=== PATIENT | female | born 1945 | race Caucasian/White ===

== ENCOUNTER → 2019-05-19 09:49 | Outpatient (BNVA) | payer BC, SELFPAY | PROVIDERS: Family Provider Family Medicine; PCP Family Medicine; Visit Provider Orthopaedic Surgery | DX: Z96.653 Presence of artificial knee joint, bilateral (principal) | CPT/HCPCS: 73560; 73565 ==

== ENCOUNTER → 2019-06-06 08:05 | Outpatient (BNVA) | payer BC, SELFPAY | PROVIDERS: Family Provider Family Medicine; PCP Family Medicine; Visit Provider Orthopaedic Surgery | DX: Z96.651 Presence of right artificial knee joint (principal) | CPT/HCPCS: 73560; 73565 ==

== ENCOUNTER 2019-11-17 23:12 | Emergency (ER) | payer BC, SELFPAY ==
--- NOTE | 2019-11-17 23:22 | XR_ITS ---
WS: [id number] PORTABLE CHEST HISTORY: fever COMPARISON: 05/09/2019 There is a small amount of free air beneath the RIGHT diaphragm. Mildly hyperinflated lungs. No pneumonia. No pleural effusion or pneumothorax. Cardiac size: Normal. Mediastinum/Aorta: Dilated ectatic thoracic aorta with partial calcification. Degenerative changes at the AC joints. Notified Dr. Cantor at 11/18/2019 8:[address] Cantor was notified about the small amount of free air. Free air is present but not described o n the CT performed on the same day. XR/XR chest 1V portable [id number] IMPRESSION: 1. Small amount of intraperitoneal free air adjacent to the RIGHT diaphragm. 2. Chronic emphysema with no pneumonia. 3. Atherosclerosis aorta.
--- NOTE | 2019-11-17 23:22 | CTR_ITS ---
PROCEDURE INFORMATION: Exam: CT Abdomen And Pelvis With Contrast Exam date and time: 11/17/2019 12:30 AM Age: 74 years old Clinical indication: Abdominal pain; Generalized; Prior surgery; Surgery type: Appendectomy, hernia repair; Additional info: Abd pain TECHNIQUE: Imaging protocol: Computed tomography of the abdomen and pelvis with intravenous contrast. Radiation optimization: All CT scans at this facility use at least one of these dose optimization techniques: automated exposure control; mA and/or kV adjustment per patient size (includes targeted exams where dose is matched to clinical indication); or iterative reconstruction. Contrast material: OMNI 300; Contrast volume: 95 ml; Contrast route: INTRAVENOUS (IV); COMPARISON: No relevant prior studies available. RADIATION DOSE METRICS: Total DLP (mGy-cm): 1718.55 FINDINGS: Lungs: Mild atelectasis at bilateral lung bases. Liver: Unremarkable. Gallbladder and bile ducts: Unremarkable. Pancreas: Unremarkable. Spleen: Unremarkable. Adrenals: Unremarkable. Kidneys and ureters: There are a few tiny (subcentimeter) hypodensities in each kidney, too small for definitive characterization. Stomach and bowel: No bowel obstruction identified. No diverticulitis identified. Appendix: The appendix is not identified, consistent with appendectomy. Intraperitoneal space: No free intraperitoneal air identified. No free intraperitoneal fluid identified. Vasculature: Extensive atherosclerotic aortoiliac calcification. No abdominal aortic aneurysm. Lymph nodes: Unremarkable. Bladder: Unremarkable as visualized. Reproductive: Unremarkable as visualized. Bones/joints: Moderate degenerative changes of the lower thoracic spine. Severe degenerative changes of the lumbar spine. Soft tissues: Unremarkable. CT/CT abdomen pelvis w con* [id number] IMPRESSION: 1. No acute intra-abdominal/intrapelvic process identified. Radiation Dose CTDIVOL = (mGy): DLP = 1718.55 (mGy-cm)
[2019-11-17 23:28] VITALS: BP 145/75; RESP 20; TEMP 37.8; O2SAT 95; BMI 34.4
--- NOTE | 2019-11-17 23:45 | W.ED.FEMALGU ---
HPI - Female Genitourinary General: Chief complaint: Urogenital-Female Stated complaint: POSSIBLE UTI Time Seen by Provider: 11/17/19 23:18 Source: patient and EMS Mode of arrival: EMS Limitations: no limitations History of Present Illness: HPI Narrative: 74-year-old female presents with fever along with diffuse abdominal pain and dysuria. Patient has a temperature of 102 at home and 100 here. She states she has had UTIs in the past and this feels similar. She has had a mild cough as well denies any shortness of breath. She denies any known contacts of COVID. Denies any worsening or improving factors. Associated symptoms: Reports abdominal pain; Deny headache(s) Review of Systems Const: Reports: fever(s) Eyes: Denies: blurry vision or eye discomfort ENMT: Denies: throat pain or dental pain Card: Denies: chest pain Resp: Denies: dyspnea GI: Reports: abdominal pain : Denies: dysuria Musc: Denies: neck pain or back pain Skin/Breast: Denies: rash Neuro: Denies: headache(s) Psych: Denies: depression Joe/Lymph: Denies: easy bruising All/Imm: Denies: urticaria PFSH ED PFSH: Medical History Heart disease Hypertension Pulmonary embolism Surgical History S/P total knee replacement Right total knee arthroplasty, DOS: 05-04-[address] Olmedo. Social History Smoking and tobacco status: former smoker Alcohol intake: never Physical Exam Const: COMMON NORMALS: no acute distress, patient oriented x3 and healthy appearing HENMT: COMMON NORMALS: normocephalic and atraumatic HEAD & SCALP: normocephalic and atraumatic Eye: COMMON NORMALS: Equal, round and reactive pupils present and EOMs intact bilaterally PUPIL: Yes Equal, round and reactive pupils present Neck/C-Spine: COMMON NORMALS: full ROM and supple Chest: COMMONS NORMALS: normal inspection of the chest and normal palpation of entire chest wall Resp: COMMON NORMALS: normal respiratory effort, No retractions, No use of accessory muscles and clear to auscultation bilaterally AUSCULTATION: clear to auscultation bilaterally Cardio: COMMON NORMALS: regular rate, regular rhythm and No murmurs present (Cardio) RATE: regular rate RHYTHM: regular rhythm GI: COMMON NORMALS: Normal to inspection, nondistended, normoactive bowel sounds present, Soft to palpation and no masses PALPATION: Yes Soft to palpation OTHER: mild diffuse tenderness Extremity: COMMON NORMALS: normal to inspection and full ROM Neuro: COMMON NORMALS: patient oriented x3, moves all extremities and no focal motor deficits Psych: COMMON NORMALS: mental status grossly normal, Normal thought process present and cooperative THOUGHT PROCESS: Normal thought process present Skin: COMMON NORMALS: no rashes or lesions noted and no wounds GENERAL SKIN EXAM: no rashes or lesions noted Course Vital Signs: Vital signs: Vital Signs Temperature 100.0 F H 11/17/19 23:28 Pulse Rate 85 11/18/19 03:32 Respiratory Rate 19 H 11/18/19 03:32 Blood Pressure 133/97 11/18/19 03:32 Pulse Oximetry 91 11/18/19 03:32 MDM - Female MDM Narrative: Medical decision making narrative: Patient presents here with a fever along with dysuria. Patient's urine here is negative but will start on Keflex. Patient had urine culture and blood cultures drawn. Patient's had a very mild cough CT abdomen and x-ray are normal. Will test for coronavirus. I did offer patient admission but she states she feels improved. Will discharge her but informed her if she feels worse she is to return immediately. Patient is to self quarantine. Patient understands and agrees to plan. Lab Data: Labs: Lab Results 11/17/19 11/17/19 11/17/19 Range/Units 23:34 23:34 23:34 WBC 3.4 L (4.0-10.0) 10^3/ uL RBC 4.76 (4.1-5.3) 10^6/u L Hgb 14.2 (11.5-15.3) g/dL Hct 45.2 (37.0-47.0) % MCV 95.0 (81-99) fL MCH 29.8 (28.0-34.0) pg MCHC 31.4 (30.0-36.0) g/dL RDW 15.6 H (12.1-15.1) % Plt Count 200 (130-400) 10^3/c mm MPV 9.9 (7.4-10.4) fL Neut % (Auto) 67.7 % Lymph % (Auto) 21.6 % [place] % (Auto) 10.4 % Eos % (Auto) 0.0 % Baso % (Auto) 0.0 % Neut # (Auto) 2.3 (1.8-7.7) 10^3/u L Lymph # (Auto) 0.7 L (0.8-4.8) 10^3/u L [place] # (Auto) 0.4 (0.2-0.9) 10^3/u L Eos # (Auto) 0.0 (0.0-0.8) 10^3/u L Baso # (Auto) 0.0 (0.0-0.1) 10^3/u L Nucleated RBC % (a uto) 0 % Nucleated RBCs # 0.0 /100WBC Sodium 137 (136-145) mmol/L Potassium 4.0 (3.5-5.1) mmol/L Chloride 100 (98-107) mmol/L Carbon Dioxide 24 (22-29) mmol/L Anion Gap 17.0 (5-19) BUN 10 (8-23) mg/dL Creatinine 0.8 (0.5-0.9) mg/dL GFR Calculation Not Reportable Glucose 126 H (65-115) mg/dL Calculated Osmolal ity 282 L (285-295) mOsm/k g Lactate 0.8 (0.5-2.2) mmol/L Calcium 9.3 (8.5-10.5) mg/dL Total Bilirubin 0.3 (0.15-1.2) mg/dL AST 35 H (0-32) U/L ALT 34 H (0-33) U/L Alkaline Phosphata se 70 (35-105) IU/L Total Protein 7.6 (6.6-8.7) g/dL Albumin 4.5 (3.5-5.2) g/dL Globulin 3.1 (1.3-4.6) g/dL Lipase 28 (13-60) U/L Urine Color (Yellow) Urine Appearance (CLEAR) Urine pH (5-7) Ur Specific Gravit y (1.005-1.030) Urine Protein (Negative) Urine Glucose (UA) (Normal) Urine Ketones (Negative) Urine Blood (Negative) Urine Nitrate (Negative) Urine Bilirubin (NEGATIVE) Urine Urobilinogen (Negative) mg/dL Ur Leukocyte Adeline ase (Negative) Urine RBC (0-2) /hpf Urine WBC (0-5) /hpf Ur Squamous Epith Cells (0-5) Amorphous Sediment Urine Bacteria (NONE) 11/18/19 Range/Units 00:03 WBC (4.0-10.0) 10^3/ uL RBC (4.1-5.3) 10^6/u L Hgb (11.5-15.3) g/dL Hct (37.0-47.0) % MCV (81-99) fL MCH (28.0-34.0) pg MCHC (30.0-36.0) g/dL RDW (12.1-15.1) % Plt Count (130-400) 10^3/c mm MPV (7.4-10.4) fL Neut % (Auto) % Lymph % (Auto) % [place] % (Auto) % Eos % (Auto) % Baso % (Auto) % Neut # (Auto) (1.8-7.7) 10^3/u L Lymph # (Auto) (0.8-4.8) 10^3/u L [place] # (Auto) (0.2-0.9) 10^3/u L Eos # (Auto) (0.0-0.8) 10^3/u L Baso # (Auto) (0.0-0.1) 10^3/u L Nucleated RBC % (a uto) % Nucleated RBCs # /100WBC Sodium (136-145) mmol/L Potassium (3.5-5.1) mmol/L Chloride (98-107) mmol/L Carbon Dioxide (22-29) mmol/L Anion Gap (5-19) BUN (8-23) mg/dL Creatinine (0.5-0.9) mg/dL GFR Calculation Glucose (65-115) mg/dL Calculated Osmolal ity (285-295) mOsm/k g Lactate (0.5-2.2) mmol/L Calcium (8.5-10.5) mg/dL Total Bilirubin (0.15-1.2) mg/dL AST (0-32) U/L ALT (0-33) U/L Alkaline Phosphata se (35-105) IU/L Total Protein (6.6-8.7) g/dL Albumin (3.5-5.2) g/dL Globulin (1.3-4.6) g/dL Lipase (13-60) U/L Urine Color Dark yellow (Yellow) Urine Appearance Hazy A (CLEAR) Urine pH 6.5 (5-7) Ur Specific Gravit y 1.015 (1.005-1.030) Urine Protein Neg (Negative) Urine Glucose (UA) Norm (Normal) Urine Ketones 2+ H (Negative) Urine Blood Neg (Negative) Urine Nitrate Negative (Negative) Urine Bilirubin 1+ H (NEGATIVE) Urine Urobilinogen 1 H (Negative) mg/dL Ur Leukocyte Adeline ase Negative (Negative) Urine RBC 0-4 H (0-2) /hpf Urine WBC None (0-5) /hpf Ur Squamous Epith Cells 25-40 H (0-5) Amorphous Sediment Not Reportable Urine Bacteria Trace (NONE) Imaging Data: CXR: Attestation: I personally reviewed and interpreted this imaging study as follows: My impression: no acute abnormality Discharge Plan Discharge Patient Disposition: Home, Self-Care Clinical Impression: Fever Qualifiers: Fever type: unspecified Qualified Code(s): R50.9 - Fever, unspecified Condition: Stable Prescriptions: New Keflex 500 mg capsule 500 mg PO Q6H 7 Days Qty: 28 RF: 0 No Action escitalopram oxalate 20 mg tablet 10 mg PO QDAY RF: 0 lovastatin 10 mg tablet 10 mg PO QDAY RF: 0 amlodipine 5 mg tablet 5 mg PO QDAY RF: 0 bupropion HCl 150 mg tablet extended release 24 hr 150 mg PO QAM RF: 0 losartan 50 mg tablet 50 mg PO QDAY RF: 0 aspirin 81 mg tablet,delayed release (DR/EC) 81 mg PO QDAY RF: 0 Complete Multivitamin Tablet 1 tab PO QDAY RF: 0 ibuprofen 800 mg tablet 800 mg PO Q8H RF: 0 Xarelto 20 mg tablet 20 mg PO QDAY RF: 0 amoxicillin 500 mg capsule 500 mg PO .COMPLEX Qty: 24 RF: 0 tramadol 50 mg tablet 50 mg PO BID PRNRF: 0 Discharge Orders: Discharge Order (Routine); Ordered 11/18/19 Ordered By: Max Mahan Referrals: Joe Witt MD [Primary Care Provider] - 1-3 days Discharge Diet: Advance as tolerated Discharge Activity: Resume usual activity Patient Instructions: Fever in Adults (ED) Coding Level of Care Code 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
[2019-11-18 00:14] LABS: Chloride 100 mmol/L (98-107); Sodium 137 mmol/L (136-145); Total Bilirubin 0.3 mg/dL (0.15-1.2); Total Protein 7.6 g/dL (6.6-8.7)
[2019-11-18 00:20] LABS: Hematocrit 45.2 % (37.0-47.0); Hemoglobin 14.2 g/dL (11.5-15.3); Lymphocytes # 0.7 10^3/uL (0.8-4.8); Lymphocytes % 21.6 %; Mean Corpuscular HGB Conc 31.4 g/dL (30.0-36.0); Mean Corpuscular Hemoglobin 29.8 pg (28.0-34.0); Mean Platelet Volume 9.9 fL (7.4-10.4); Monocytes # 0.4 10^3/uL (0.2-0.9); Monocytes % 10.4 %; Neutrophils # 2.3 10^3/uL (1.8-7.7); Neutrophils % 67.7 %; Nucleated Red Blood Cells % 0 %; Platelet Count 200 10^3/cmm (130-400); Red Blood Count 4.76 10^6/uL (4.1-5.3); Red Cell Distribution Width 15.6 % (12.1-15.1); White Blood Count 3.4 10^3/uL (4.0-10.0)
[2019-11-18] MEDS: ondansetron 2 mg/ML SDV 2 mL 4 MG IVP (00:33)
[2019-11-18] MEDS: sodium chloride 0.9% 1,000 ML 999 ML IV (00:33)
[2019-11-18 00:35] VITALS: BP 129/71; PULSE 87; RESP 18; O2SAT 94
[2019-11-18 01:25] LABS: Alanine Aminotransferase 34 U/L (0-33); Albumin Level 4.5 g/dL (3.5-5.2); Alkaline Phosphatase 70 IU/L (35-105); Aspartate Amino Transferase 35 U/L (0-32); Blood Urea Nitrogen 10 mg/dL (8-23); Calcium 9.3 mg/dL (8.5-10.5); Carbon Dioxide 24 mmol/L (22-29); Globulin 3.1 g/dL (1.3-4.6); Glucose 126 mg/dL (65-115); Lipase 28 U/L (13-60); Osmolality Calculated 282 mOsm/kg (285-295)
[2019-11-18 01:30] LABS: Add Urine Microscopic? YES; Bilirubin Urine 1+ (NEGATIVE); Blood Urine Neg (Negative); Glucose Urine UA Norm (Normal); Ketones Urine 2+ (Negative); Leukocyte Esterase Urine Negative (Negative); Nitrate Urine Negative (Negative); Protein Urine Neg (Negative); Specific Gravity, Urine 1.015 (1.005-1.030); Urine Appearance Hazy (CLEAR); Urine Color Dark Yellow (Yellow); Urobilinogen Urine 1 mg/dL (Negative); pH Urine 6.5 (5-7)
[2019-11-18 01:32] LABS: Add Urine Culture? No; Bacteria Urine TRACE; RBC Urine 0-4 /hpf (0-2); Squamous Epithelial Cell Urine 25-40 (0-5)
[2019-11-18] MEDS: iohexol 300 mg/mL 100 mL Btl IV (01:38)
[2019-11-18] MEDS: TRAMadol 50 mg Tablet PO (01:38)
[2019-11-18 01:44] LABS: Lactate (Lactic Acid level) 0.8 mmol/L (0.5-2.2)
[2019-11-18 03:32] VITALS: BP 133/97; PULSE 85; RESP 19; O2SAT 91
[2019-11-18] MEDS: cefTRIAXone 1,000 MG in sodium chloride 0.9% (plus) 50 ML 100 MG IV (03:32)
[2019-11-18 05:08] VITALS: BP 117/75; PULSE 93; RESP 16; O2SAT 96
[2019-11-18 05:51] LABS: Influenza A by IFA Negative (Negative); Influenza B by IFA Negative (Negative)
--- NOTE | 2019-11-18 08:49 | PC.NURSE ---
Pt called and notified of Dr Cantor request for pt to return to ED for further evaluation after radiology results. Pt states she will come in.
[2019-11-19 09:28] LABS: Coronavirus Lab Test PTC SEE REPORT
== END 2019-11-18 05:12 | disposition home or self-care (01) ==
PROVIDERS: Emergency Provider Emergency Medicine; PCP Family Medicine
DX: R50.9 Fever, unspecified (principal); Z79.82 Long term (current) use of aspirin; I10 Essential (primary) hypertension; Z87.891 Personal history of nicotine dependence
CPT/HCPCS: 12345; 71045; 74177; 80053; 81001; 81003; 83605; 83690; 85025; 87040; 87086; 87635; 87804; 96365; 96375; 99284; J0696; J2405; J7030; Q9967

== ENCOUNTER 2019-11-18 09:11 | Inpatient (IN) | payer MEDICARE, BC, SELFPAY ==
[2019-11-18] VITALS (12 sets, daily range): BP systolic 118–145; BP diastolic 69–80; PULSE 75–94; RESP 16–20; TEMP 37.4–37.6; O2SAT 93–97; BMI 34.4
--- NOTE | 2019-11-18 09:21 | CT_ITS ---
WS: [id number] CT ABDOMEN AND PELVIS WITH CONTRAST HISTORY: abd pain, possible free air. TECHNIQUE: Imaging performed of the abdomen and pelvis with IV contrast. Single phase imaging of the abdomen. Coronal and sagittal reformats are submitted. All CT scans at [facility] use at least one of these dose optimization techniques: automated exposure control; mA and/or kV adjustment per patient size (includes targeted exams where dose is matched to clinical indication); or iterativ e reconstruction. IV CONTRAST: Visipaque 320; 95 mL IV. Oral contrast: No DLP: 1335.58 mGy.cm COMPARISON: Earlier the same day. Lower thorax: Lung bases are clear. Heart is normal size. Small hiatal hernia. There is an air pocket just beneath the RIGHT diaphragm anteriorly. Curvilinear air extends across th e superior aspect of the diaphragm. This connects to a large air pocket in the RIGHT abdomen contiguo us with the hepatic flexure. There is a neck measuring 1.2 cm connecting this larger pocket to the hicks bdiaphragmatic air. The amount of air over the diaphragm has increased. Liver, spleen, gallbladder, pancreas and adrenal glands and kidneys are unchanged. Cortical hypodensi ties are too small to characterize. Mild atherosclerosis aorta. There is no abscess. No ascites. Sigmoid diverticulosis without diverticulitis. Bones: Thoracolumbar scoliosis with advanced degenerative changes. Notified Vern Cantor DO at 11/18/2019 10:[address]/CT abdomen pelvis w con* [id number] IMPRESSION: 1. Enlarging pocket of air beneath the RIGHT hemidiaphragm with connection to the hepatic flexure. Free air versus new enlarging diverticulum. No GI tract ob struction. Favor this is probably a contained rupture with increasing distentio n. 2. No ascites.
--- NOTE | 2019-11-18 09:37 | W.ED.RECABL ---
HPI - Recheck/Abnormal Lab/Rx General: Chief Complaint: Recheck/Abnormal Lab/Rx Stated Complaint: abnormal scans Time Seen by Provider: 11/18/19 09:14 History of Present Illness: HPI narrative: 74-year-old female was seen last night in the emergency room evaluated by Korin Langley was concerned about abdominal pain she actually CT the abdomen there was a concern of free air on the chest x-ray onto the right side of the diaphragms of CT of the abdomen was read as nothing acute would review this morning by Dr. Lundberg she felt there was free air in the abdomen recommend having the patient come back we contacted the patient she did return immediately she is rating her pain anywhere from a 5 to an 8 of 10 she has a very poor appetite stopped able to eat or drink anything she was given Keflex last night for a cystitis she has been having urinary tract symptoms. She took the Keflex little bit of toast this morning. She states she has severe nausea, but no vomiting or diarrhea. She is not ever had any peptic ulcer disease or GI bleeds in the past. She does have a lot of symptoms with frequency of urination urgency consistent with her findings last night she denies any cough cold or respiratory symptoms recently has not been around anyone that she is aware of exposed to COVID. complaint: other (Follow-up on abnormal findings on CT abdomen) Initial visit (ago): day(s) (1) Initial visit for: other (Abdominal pain with finding of free air in the abdomen on the CT) Returns today for: called because of abnormal lab/test Description of abnormal result: Free air underneath the right diaphragm confirmed on CT done last night Associated symptoms: fever, chills, nausea and abdominal pain Review of Systems Const: Denies: fever(s), chills, body aches, change in appetite, fatigue or malaise ENMT: Denies: throat pain, ear or mastoid pain, nasal discharge or nasal congestion Card: Denies: chest pain, edema, dyspnea on exertion or orthopnea Resp: Denies: dyspnea, productive cough or non-productive cough GI: Denies: abdominal pain, nausea, vomiting, hematemesis, coffee ground emesis, diarrhea, constipation, bloating, hematochezia or melena : Denies: flank pain, difficulty voiding, dysuria, urinary frequency or urinary urgency Skin/Breast: Denies: rash or pruritus PFSH ED PFSH: Medical History (Updated 11/18/19 @ 13:45 by Daniel Collins MD) Cervical stenosis of spine Heart disease Hypertension Pulmonary embolism Surgical History (Updated 11/18/19 @ 13:34 by Vipin Eng MD) History of appendectomy History of cataract surgery History of left inguinal hernia repair History of lumbar laminectomy History of tonsillectomy S/P total knee replacement Right total knee arthroplasty, DOS: 05-04-[address] Olmedo. Social History Smoking and tobacco status: former smoker Alcohol intake: never Physical Exam Const: COMMON NORMALS: no acute distress GENERAL APPEARANCE: cooperative and comfortable ORIENTATION/CONSCIOUSNESS: Yes awake, Yes oriented to person, Yes oriented to place and Yes oriented to time HENMT: COMMON NORMALS: normocephalic, atraumatic, hearing grossly normal bilaterally, external ears normal, EAC's normal, TM's normal bilaterally, Normal nasal mucous membranes and turbinates present, moist oral mucous membranes and oropharynx normal HEAD & SCALP: normocephalic and atraumatic NOSE: Normal nasal mucous membranes and turbinates present EXTERNAL EAR: Yes external ears normal EXTERNAL AUDITORY CANAL: EAC's normal TYMPANIC MEMBRANE: TM's normal bilaterally Eye: COMMON NORMALS: Equal, round and reactive pupils present, EOMs intact bilaterally, conjunctivae normal and no scleral icterus CONJUNCTIVA: Yes conjunctivae normal PUPIL: Yes Equal, round and reactive pupils present Neck/C-Spine: COMMON NORMALS: full ROM, no lymphadenopathy, supple and no JVD Lymph: LYMPHATIC: no lymphadenopathy noted and no lymphedema noted Resp: COMMON NORMALS: normal respiratory effort, No retractions, No use of accessory muscles and clear to auscultation bilaterally AUSCULTATION: clear to auscultation bilaterally Cardio: COMMON NORMALS: no JVD, regular rate, regular rhythm and No murmurs present (Cardio) RATE: regular rate RHYTHM: regular rhythm GI: COMMON NORMALS: negative for No hepatosplenomegaly present AUSCULTATION: Yes Hypoactive bowel sounds present PALPATION: Yes Tenderness to palpation present (GI) Details: RUQ, No Guarding due to palpation present (GI), No Rigid due to palpation and No No hepatosplenomegaly present Extremity: COMMON NORMALS: normal to inspection, capillary refill normal, no clubbing, cyanosis or edema, no calf tenderness and no pedal edema Neuro: SENSORIUM/ORIENTATION: Yes oriented to person, Yes oriented to place and Yes oriented to time Skin: COMMON NORMALS: no rashes or lesions noted GENERAL SKIN EXAM: no rashes or lesions noted Course Vital Signs: Vital signs: Vital Signs Temperature 99.7 F H 11/18/19 09:19 Pulse Rate 89 11/18/19 13:51 Respiratory Rate 16 11/18/19 13:51 Blood Pressure 139/73 11/18/19 13:51 Pulse Oximetry 93 11/18/19 13:51 MDM - Recheck/Abnormal Lab/Rx MDM Narrative: Medical decision making narrative: Increased free air from last night's exam. We will go ahead and admit the patient discussed with Albertina. She is already been given Unasyn will add vancomycin Colin to admit for medical care. Lab Data: Labs: Lab Results 11/18/19 11/18/19 11/18/19 Range/Units 09:48 09:48 09:48 WBC 2.9 L (4.0-10.0) 10^3/ uL RBC 4.66 (4.1-5.3) 10^6/u L Hgb 13.7 (11.5-15.3) g/dL Hct 43.6 (37.0-47.0) % MCV 93.6 (81-99) fL MCH 29.4 (28.0-34.0) pg MCHC 31.4 (30.0-36.0) g/dL RDW 15.5 H (12.1-15.1) % Plt Count 168 (130-400) 10^3/c mm MPV 9.6 (7.4-10.4) fL Neut % (Auto) 69.7 % Lymph % (Auto) 21.8 % [place] % (Auto) 7.6 % Eos % (Auto) 0.3 % Baso % (Auto) 0.3 % Neut # (Auto) 2.0 (1.8-7.7) 10^3/u L Lymph # (Auto) 0.6 L (0.8-4.8) 10^3/u L [place] # (Auto) 0.2 (0.2-0.9) 10^3/u L Eos # (Auto) 0.0 (0.0-0.8) 10^3/u L Baso # (Auto) 0.0 (0.0-0.1) 10^3/u L Nucleated RBC % (a uto) 0 % Nucleated RBCs # 0.0 /100WBC Sodium 136 (136-145) mmol/L Potassium 3.8 (3.5-5.1) mmol/L Chloride 100 (98-107) mmol/L Carbon Dioxide 23 (22-29) mmol/L Anion Gap 16.8 (5-19) BUN 11 (8-23) mg/dL Creatinine 0.9 (0.5-0.9) mg/dL Glucose 106 (65-115) mg/dL Calculated Osmolal ity 278 L (285-295) mOsm/k g Lactate 0.8 (0.5-2.2) mmol/L Calcium 9.2 (8.5-10.5) mg/dL Total Bilirubin 0.3 (0.15-1.2) mg/dL AST 40 H (0-32) U/L ALT 39 H (0-33) U/L Alkaline Phosphata se 68 (35-105) IU/L Total Protein 7.3 (6.6-8.7) g/dL Albumin 4.4 (3.5-5.2) g/dL Globulin 2.9 (1.3-4.6) g/dL Lipase 33 (13-60) U/L Urine Color Urine Appearance Urine pH Ur Specific Gravit y Urine Protein Urine Glucose (UA) Urine Ketones Urine Blood Urine Nitrate Urine Bilirubin Prot Sulfosalicyli c Acd Urine Urobilinogen Ur Leukocyte Adeline ase Urine RBC (0-2) /hpf Urine WBC (0-5) /hpf Ur Squamous Epith Cells (0-5) Urine Bacteria (NONE) 11/18/19 11/18/19 Range/Units 10:22 10:22 WBC (4.0-10.0) 10^3/ uL RBC (4.1-5.3) 10^6/u L Hgb (11.5-15.3) g/dL Hct (37.0-47.0) % MCV (81-99) fL MCH (28.0-34.0) pg MCHC (30.0-36.0) g/dL RDW (12.1-15.1) % Plt Count (130-400) 10^3/c mm MPV (7.4-10.4) fL Neut % (Auto) % Lymph % (Auto) % [place] % (Auto) % Eos % (Auto) % Baso % (Auto) % Neut # (Auto) (1.8-7.7) 10^3/u L Lymph # (Auto) (0.8-4.8) 10^3/u L [place] # (Auto) (0.2-0.9) 10^3/u L Eos # (Auto) (0.0-0.8) 10^3/u L Baso # (Auto) (0.0-0.1) 10^3/u L Nucleated RBC % (a uto) % Nucleated RBCs # /100WBC Sodium (136-145) mmol/L Potassium (3.5-5.1) mmol/L Chloride (98-107) mmol/L Carbon Dioxide (22-29) mmol/L Anion Gap (5-19) BUN (8-23) mg/dL Creatinine (0.5-0.9) mg/dL Glucose (65-115) mg/dL Calculated Osmolal ity (285-295) mOsm/k g Lactate (0.5-2.2) mmol/L Calcium (8.5-10.5) mg/dL Total Bilirubin (0.15-1.2) mg/dL AST (0-32) U/L ALT (0-33) U/L Alkaline Phosphata se (35-105) IU/L Total Protein (6.6-8.7) g/dL Albumin (3.5-5.2) g/dL Globulin (1.3-4.6) g/dL Lipase (13-60) U/L Urine Color Cancelled Dark yellow Urine Appearance Cancelled Clear Urine pH Cancelled 5 Ur Specific Gravit y Cancelled 1.015 Urine Protein Cancelled 1+ H Urine Glucose (UA) Cancelled Norm Urine Ketones Cancelled 1+ H Urine Blood Cancelled 2+ H Urine Nitrate Cancelled Negative Urine Bilirubin Cancelled 1+ H Prot Sulfosalicyli c Acd Cancelled Urine Urobilinogen Cancelled 1 H Ur Leukocyte Adeline ase Cancelled Negative Urine RBC 0-4 H (0-2) /hpf Urine WBC Rare (0-5) /hpf Ur Squamous Epith Cells 0-4 H (0-5) Urine Bacteria 1+ H (NONE) Discharge Plan Discharge Patient Disposition: Admitted As Inpatient Admit Provider: Daniel Collins Discharge Date/Time: 11/18/19 14:00 Coding Level of Care Code ED 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
[2019-11-18 09:59] LABS: Basophils % 0.3 %; Eosinophils % 0.3 %; Hematocrit 43.6 % (37.0-47.0); Hemoglobin 13.7 g/dL (11.5-15.3); Lymphocytes # 0.6 10^3/uL (0.8-4.8); Lymphocytes % 21.8 %; Mean Corpuscular HGB Conc 31.4 g/dL (30.0-36.0); Mean Corpuscular Hemoglobin 29.4 pg (28.0-34.0); Mean Corpuscular Volume 93.6 fL (81-99); Mean Platelet Volume 9.6 fL (7.4-10.4); Monocytes # 0.2 10^3/uL (0.2-0.9); Monocytes % 7.6 %; Neutrophils % 69.7 %; Nucleated Red Blood Cells % 0 %; Platelet Count 168 10^3/cmm (130-400); Red Blood Count 4.66 10^6/uL (4.1-5.3); Red Cell Distribution Width 15.5 % (12.1-15.1); White Blood Count 2.9 10^3/uL (4.0-10.0)
[2019-11-18] MEDS: ondansetron 2 mg/ML SDV 2 mL 4 MG IVP (10:08)
[2019-11-18] MEDS: HYDROmorphone 1 mg/mL INJ 1 mL 0.5 MG IVP ×2 (10:09→15:35)
[2019-11-18] MEDS: sodium chloride 0.9% 1,000 ML 999 ML IV (10:11)
[2019-11-18] MEDS: iodixanol 320 mg/mL 100mL Btl IV (10:14)
[2019-11-18 10:18] LABS: Alanine Aminotransferase 39 U/L (0-33); Albumin Level 4.4 g/dL (3.5-5.2); Alkaline Phosphatase 68 IU/L (35-105); Anion Gap 16.8 (5-19); Aspartate Amino Transferase 40 U/L (0-32); Blood Urea Nitrogen 11 mg/dL (8-23); Calcium 9.2 mg/dL (8.5-10.5); Carbon Dioxide 23 mmol/L (22-29); Chloride 100 mmol/L (98-107); Globulin 2.9 g/dL (1.3-4.6); Glucose 106 mg/dL (65-115); Lipase 33 U/L (13-60); Osmolality Calculated 278 mOsm/kg (285-295); Potassium 3.8 mmol/L (3.5-5.1); Sodium 136 mmol/L (136-145); Total Bilirubin 0.3 mg/dL (0.15-1.2); Total Protein 7.3 g/dL (6.6-8.7)
[2019-11-18 10:19] LABS: Lactate (Lactic Acid level) 0.8 mmol/L (0.5-2.2)
--- NOTE | 2019-11-18 10:19 | PC.NURSE ---
pt back from CT by stretcher with tech
[2019-11-18 11:00] LABS: Urine Color Dark Yellow (Yellow)
[2019-11-18 11:01] LABS: Bacteria Urine 1+; Bilirubin Urine 1+ (NEGATIVE); Blood Urine 2+ (Negative); Glucose Urine UA Norm (Normal); Ketones Urine 1+ (Negative); Leukocyte Esterase Urine Negative (Negative); Nitrate Urine Negative (Negative); Protein Urine 1+ (Negative); RBC Urine 0-4 /hpf (0-2); Specific Gravity, Urine 1.015 (1.005-1.030); Squamous Epithelial Cell Urine 0-4 (0-5); Urine Appearance Clear (CLEAR); Urobilinogen Urine 1 mg/dL (Negative); WBC Urine RARE /hpf (0-5); pH Urine 5 (5-7)
[2019-11-18 11:02] LABS: Add Urine Culture? No
[2019-11-18] MEDS: piperacillin-tazobactam 3.375 GM in sodium chloride 0.9% (plus) 50 ML IV ×2 (11:22→18:53)
--- NOTE | 2019-11-18 13:24 | PM.CONSULT ---
Providers/Reason For Consult Consulting Physican/Specialty*: General Surgery Vipin Eng MD Reason for Consult*: Suspected pneumoperitoneum. Attending Physician: Daniel Collins MD Primary Care Provider: Joe Witt MD History of Present Illness History of Present Illness Chaparrita Godinez is a 74 year old female who presented to the emergency department last night for a 2-day history of some left lower quadrant abdominal discomfort along with urinary frequency and urgency. She said the pain in the left lower quadrant would also bother her back on that side at times. She was having some fevers and chills as well as some sweats. She has a history of recurrent urinary tract infections. She had been having new urinary frequency and urgency, but the abdominal discomfort along with urinary symptoms in the past is not typical. She had been running fevers up to 102 degrees. She was sent home on antibiotics with the presumptive diagnosis of a urinary tract infection, although her urinalysis last night (or today) did not look very suggestive of a bad infection. There was also apparently some concern on a plain film that the patient may have a small area of free air in the right upper quadrant under the diaphragm. A subsequent CAT scan was deemed to be negative for free air. Upon further evaluation by another radiologist this morning, it was thought that the CAT scan did, in fact, suggest free air; the patient was called back to the emergency room. A follow-up CAT scan revealed the same findings and the radiologist today thought the amount of air was slightly larger. The patient says that her abdominal pain is actually better today. She has not had any changes in her bowel habits and says her bowel movements have been normal. She denies hematochezia. Her appetite has not been very good over the past couple of days but she denies any upper abdominal pain. She has no known history of peptic ulcer disease or diverticulitis. She rarely takes NSAIDs, although she does have ibuprofen listed on her medication list (she says she rarely takes it). She had a colonoscopy around 2009 which did not show any problems according to her. She has no family history of colon neoplasia. Review of Systems General: Reports: 10 or more systems reviewed and unremarkable except in HPI and below Const: Reports: fever(s) and chills GI: Reports: abdominal pain; Denies: diarrhea, constipation, change in bowel habits, hematochezia or mucus in stool : Reports: flank pain (left lower), urinary urgency, urinary incontinence and other (Recurrent UTIs) Musc: Reports: neck pain (Cervical stenosis) Meds/Allergies Home Medications and Allergies Home Medications Medication Instructions Recorded Confirmed Last Taken Type tramadol 50 mg tablet 50 mg PO TID PRN 05/19/19 11/18/19 11/17/19 History aspirin 81 mg tablet,delayed 81 mg PO DAILY 06/06/19 11/18/19 11/16/19 History release bupropion HCl 150 mg 24 hr tablet, 150 mg PO QAM 06/06/19 11/18/19 11/16/19 History extended release escitalopram oxalate 20 mg tablet 20 mg PO DAILY 06/06/19 11/18/19 11/16/19 History ibuprofen 800 mg tablet 800 mg PO Q8H PRN 06/06/19 11/18/19 Unknown History losartan 50 mg tablet 50 mg PO DAILY 06/06/19 11/18/19 11/16/19 History lovastatin 10 mg tablet 10 mg PO DAILY 06/06/19 11/18/19 11/16/19 History multivitamin,[id number] 1 tab PO DAILY 06/06/19 11/18/19 11/16/19 History Probiotic 1 cap PO DAILY 11/18/19 11/18/19 11/16/19 History amoxicillin See Rx Instructions .ROUTE .COMPLEX 11/18/19 11/18/19 Unknown History cephalexin [Keflex] 500 mg PO Q6H 7 Days #28 cap 11/18/19 11/18/19 Unknown Rx oxycodone-acetaminophen 1 tab PO Q4H PRN 11/18/19 11/18/19 Unknown History Allergies Allergy/AdvReac Type Severity Reaction Status Date / Time Opioids - Morphine Analogues AdvReac Vomiting Verified 11/18/19 13:47 PFSH Acute PFSH: Medical History (Updated 11/18/19 @ 13:45 by Daniel Collins MD) Cervical stenosis of spine Heart disease Hypertension Pulmonary embolism Surgical History (Updated 11/18/19 @ 13:34 by Vipin Eng MD) History of appendectomy History of cataract surgery History of left inguinal hernia repair History of lumbar laminectomy History of tonsillectomy S/P total knee replacement Right total knee arthroplasty, DOS: 05-04-[address] Olmedo. Social History Smoking and tobacco status: former smoker Alcohol intake: never Vitals/I&O/Wt Last Vital Signs Temp 99.7 F H 11/18/19 09:19 Pulse 94 11/18/19 13:17 Resp 17 11/18/19 13:17 BP 125/77 11/18/19 13:17 Pulse Ox 96 11/18/19 13:17 11/17/19 11/18/19 11/18/19 22:59 06:59 14:59 Intake Total 1050 / 1050 Balance 1050 / 1050 Weight last 48 hrs Weight 220 lb Physical Exam Narrative: EXAM NARRATIVE: Was encountered in her room in the emergency department. She does not appear to be in any distress. The pupils are equal. No carotid bruits are heard. The lungs are clear. The heart is regular. The abdomen is moderately to severely obese but is soft. The patient has no appreciable upper abdominal tenderness on my exam. I cannot feel any obvious masses. The lower abdomen may reveal some scattered mild tenderness. The extremities reveal no significant edema. Neurologically the patient appears to be grossly intact. Data Micro: Micro: Microbiology 11/18/19 10:56 Blood Culture - Pr eliminary Blood SPECIMEN [facility] 11/18/19 09:48 Blood Culture - Pr eliminary Blood SPECIMEN [facility] Imaging^: CT Abd/Pel: Radiologist's impression: CT abdomen/pelvis 11/18/2019 iMPRESSION: 1. Enlarging pocket of air beneath the RIGHT hemidiaphragm with connection to the hepatic flexure. Free air versus new enlarging diverticulum. No GI tract obstruction. Favor this is probably a contained rupture with increasing distention. 2. No ascites. A&P Assessment and plan (1) Pneumoperitoneum: CT reviewed and I agree that this is very suspicious for pneumoperitoneum. It appears to be contained and the patient does not seem to have any symptomatology where the pneumoperitoneum is. In addition, it is difficult to identify any obvious fat stranding or inflammatory changes in the hepatic flexure of the colon which is the closest loop of intestine to this area. The patient is surprisingly without a lot of signs or symptoms in this area. She does present with a several day history of left lower quadrant discomfort but it is difficult to identify any obvious inflammatory changes in that region which could be contributing. Her white blood cell count is not elevated. I have discussed pneumoperitoneum with the patient in some detail. While the vast majority of these findings usually represent something ominous, I did make the patient aware that sometimes we see these changes and they are relatively asymptomatic. In fact, there are well-documented cases of completely benign pneumoperitoneum. While I am not prepared to diagnose this as unconcerning, the patient simply does not appear to be ill enough at this point to warrant surgical exploration. I have suggested admission with antibiotic coverage; she seems agreeable with the plan. Status: Acute Consult Attestations Medical Necessity Statement: See admitting service's notation. Coding Level of Care Code Acute Technician Support Engineer for Benjamín Montemayor Diagnoses Pneumoperitoneum K66.8
[2019-11-18] MEDS: vancomycin 1,000 MG in sodium chloride 0.9% 250 ML 250 MG IV (13:40)
--- NOTE | 2019-11-18 13:42 | P.HP_ITS ---
Providers/Chief Complaint Admitting Physician: Daniel Collins MD Primary Care Provider: Joe Witt MD Chief Complaint: poss uti/called back History of Present Illness Chaparrita Godinez is a 74 year old female who presented to the emergency department last night for a 2-day history of some left lower quadrant abdominal discomfort along with urinary frequency and urgency. She said the pain in the left lower quadrant would also bother her back on that side at times. She was having some fevers and chills as well as some sweats. She has a history of recurrent urinary tract infections, but the abdominal discomfort along with the urinary symptoms was not typical. She had been running fevers up to 102 degrees. She was sent home on antibiotics with the presumptive diagnosis of a urinary tract infection, although her urinalysis did not look very suggestive of a bad infect ion. There was also apparently some concern on a plain film that the patient may have a small area of free air in the right upper quadrant under the diaphragm. A subsequent CAT scan was deemed to be negative for free air. Upon further evaluation by another radiologist this morning, it was thought that the CAT scan did, in fact, suggest free air; the patient was called back to the emergency room. A follow-up CAT scan revealed the same findings and the radiologist today thought the amount of air was slightly larger. The patient says that her abdominal pain is actually better today. She has not had any changes in her bowel habits and says her bowel movements have been normal. She denies hematochezia. Her appetite has not been very good over the past couple of days but she denies any upper abdominal pain. She has no known history of peptic ulcer disease or diverticulitis. She rarely takes NSAIDs, although she does have ibuprofen listed on her medication list (she says she rarely takes it). She had a colonoscopy around 2009 which did not show any problems according to her. She has no family history of colon neoplasia. Review of Systems Const: Denies: fever(s), chills, body aches, change in appetite, malaise, night sweats, diaphoresis, change in sleep pattern, daytime sleepiness or snoring Eyes: Denies: change in vision, blurry vision, photophobia, eye discomfort or eye discharge ENMT: Denies: throat pain, enlarged tonsils, hoarseness, mouth pain, oral so res, dry mouth, tinnitus, nasal congestion or post nasal drip Card: Denies: chest pain, palpitations, irregular heart rhythm, edema, swelling of feet/ankles, lightheadedness, syncope, pre-syncope, dyspnea on exertion, orthopnea, leg pain with exertion or acrocyanosis Resp: Denies: dyspnea, productive cough, non-productive cough, wheezing, stridor, pain on inspiration, change in phlegm color, hemoptysis or chest congestion GI: Reports: abdominal pain, nausea, vomiting and GI cramping; Denies: hematemesis, coffee ground emesis, dysphagia, heartburn, diarrhea, constipation, bloating, change in bowel habits, pain on defecation, hematochezia or melena : Denies: flank pain, dysuria, urinary frequency, urinary urgency, urinary hesitancy, nocturia or hematuria Musc: Denies: neck pain, back pain, extremity pain, joint pain, joint swelling, joint redness, joint stiffness or limited range of motion Neuro: Denies: headache(s), numbness in extremities, weakness in extremities, sensory changes, lack of coordination, difficulty walking, frequent falls, dizziness, vertigo, confusion, Slurred speech present, difficulty communicating thoughts or seizure-like activity Psych: Denies: anxiety, depression, mood swings, panic attacks, hopelessness or irritability Endo: Denies: polyuria, polydipsia, tired all the time, cold intolerance, excessive sweating, flushing or heat intolerance Joe/Lymph: Denies: easy bruising or easy bleeding All/Imm: Denies: tongue swelling, facial swelling or acute wheezing Medications/Allergies Home Medications Medication Instructions Recorded Confirmed Last Taken Type tramadol 50 mg tablet 50 mg PO TID PRN 05/19/19 11/18/19 11/17/19 History aspirin 81 mg tablet,delayed 81 mg PO DAILY 06/06/19 11/18/19 11/16/19 History release bupropion HCl 150 mg 24 hr tablet, 150 mg PO QAM 06/06/19 11/18/19 11/16/19 History extended release escitalopram oxalate 20 mg tablet 20 mg PO DAILY 06/06/19 11/18/19 11/16/19 History ibuprofen 800 mg tablet 800 mg PO Q8H PRN 06/06/19 11/18/19 Unknown History losartan 50 mg tablet 50 mg PO DAILY 06/06/19 11/18/19 11/16/19 History lovastatin 10 mg tablet 10 mg PO DAILY 06/06/19 11/18/19 11/16/19 History multivitamin,[id number] 1 tab PO DAILY 06/06/19 11/18/19 11/16/19 History Probiotic 1 cap PO DAILY 11/18/19 11/18/19 11/16/19 History amoxicillin See Rx Instructions .ROUTE .COMPLEX 11/18/19 11/18/19 Unknown History cephalexin [Keflex] 500 mg PO Q6H 7 Days #28 cap 11/18/19 11/18/19 Unknown Rx oxycodone-acetaminophen 1 tab PO Q4H PRN 11/18/19 11/18/19 Unknown History Allergies Allergy/AdvReac Type Severity Reaction Status Date / Time Opioids - Morphine Analogues AdvReac Vomiting Verified 11/18/19 13:47 PFSH Acute PFSH: Medical History (Updated 11/18/19 @ 13:45 by Daniel Collins MD) Cervical stenosis of spine Heart disease Hypertension Pulmonary embolism Surgical History (Updated 11/18/19 @ 13:34 by Vipin Eng MD) History of appendectomy History of cataract surgery History of left inguinal hernia repair History of lumbar laminectomy History of tonsillectomy S/P total knee replacement Right total knee arthroplasty, DOS: 05-04-[address] Olmedo. Social History Smoking and tobacco status: former smoker Alcohol intake: never Vitals/I&O/Wt Last Vital Signs Temp 99.7 F H 11/18/19 09:19 Pulse 94 11/18/19 13:17 Resp 17 11/18/19 13:17 BP 125/77 11/18/19 13:17 Pulse Ox 96 11/18/19 13:17 11/17/19 11/18/19 11/18/19 22:59 06:59 14:59 Intake Total 1050 / 1050 Balance 1050 / 1050 Weight last 48 hrs Weight 99.79 kg Physical Exam Narrative: EXAM NARRATIVE: General: No acute distress, AO x3 HEENT: PERRLA, pupils bilaterally equal and reactive Chest: Normal vesicular breath sounds, no added sounds, equal good air entry bilaterally CVS: S1-S2 regular, no murmurs, no tachycardia, no gallops, no rubs Abdomen: Bowel sounds sluggish, soft, tender generalized, no rebound, guarding present Neuro: No focal deficits, no facial deformity, AO x3, power 5/5 in all limbs Data : 11/18/19 09:48 11/18/19 09:48 Micro: Microbiology 11/18/19 10:56 Blood Culture - Preliminary Blood SPECIMEN COLLECTED 11/18/19 09:48 Blood Culture - Preliminary Blood SPECIMEN COLLECTED CT Abd/Pel: Radiologist's impression: CT abdomen/pelvis 11/18/2019 IMPRESSION: 1. Enlarging pocket of air beneath the RIGHT hemidiaphragm with connection to the hepatic flexure. Free air versus new enlarging diverticulum. No GI tract obstruction. Favor this is probably a contained rupture with increasing distention. 2. No ascites. A&P Assessment and plan (1) Pneumoperitoneum: Status: Acute (2) Fever: Status: Acute Qualifiers: Fever type: unspecified Qualified Code(s): R50.9 - Fever, unspecified (3) Hypertension: Status: Acute Additional A&P Information Pneumoperitoneum: Surgery has been consulted. Appreciate Dr. Eng's recommendations. For now the plan is to treat conservatively and if patient deteriorates then to go for surgical exploration. Anticoagulation, diet as per surgery. For now start patient on vancomycin and Zosyn. MRSA swab, blood cultures. N.p.o. for now. Normal saline at 75 cc/h. Hypertension: Blood pressure 140/90 mmHg. Takes losartan at home. For now we will hold off on any antihypertensive. If required can give IV hydralazine every 6 hours as needed. History of depression: We will hold off on antidepressants for now given patient is n.p.o. Full code. N.p.o. SCDs for DVT prophylaxis, hold off on therapeutic anticoagulation because of possible surgery. Attestations Medical Necessity Statement*: More than 2 midnights for pneumoperitoneum Time Spent in Patient Care: Greater than 35 minutes (>than 50% of time spent in counselling and/or direct pt care on unit) . Coding Level of Care Code Acute Construction Code Administrator for [facility] Evetted Diagnoses Pneumoperitoneum K66.8 Fever R50.9 Fever type: unspecified Hypertension I10
--- NOTE | 2019-11-18 14:35 | USCV_ITS ---
Chaparrita Godinez Age: 74 Gender: F : 1945 Exam Date: 11/18/2019 15:01 Ordering Phys: Vern Cantor DO Technologist: Jose Narvaez Exam Location: [facility] – [place]_ Indication: LEFT LEG PAIN PROCEDURES: Venous duplex imaging was performed in only the left lower extremity. The following venous structures were evaluated: common femoral vein, profunda vein, proximal portion of the greater saphenous vein, superficial femoral vein, and the popliteal vein. In addition, the posterior tibial and peroneal trunk were evaluated. Serial compression, augmentation maneuvers, and spectral Doppler flow evaluation were performed. FINDINGS: Normal 2-D Doppler and augmentation and compressibility throughout the lower extremity venous structures. Additional imaging through the proximal calf veins also reveals no thrombus. Limited evaluation of the greater saphenous vein is patent with no thrombus.. CONCLUSIONS No evidence of left lower extremity DVT. Gordy Alfredo MD (Electronically Signed) Final Date: 18 November 2019 16:06 S
[2019-11-18] MEDS: D5-NS 0.45% + KCL 20 mEq 20 MEQ/1,000 ML BAG 100 MEQ IV (15:32)
[2019-11-18] MEDS: pantoprazole 40 mg SDV IVP (15:39)
[2019-11-18] MEDS: heparin 5,000 unit/mL INJ 1 mL 5000 UNIT SUBCUT (15:48)
[2019-11-18 15:57] LABS: Thyroid Stimulating Hormone 4.78 uIU/mL (0.27-4.20)
[2019-11-18 16:32] LABS: Lactic Sepsis W/Reflex 0.5 mmol/L (0.5-2.2)
[2019-11-19] VITALS (7 sets, daily range): BP systolic 120–144; BP diastolic 72–78; PULSE 72–86; RESP 18–20; TEMP 36.8–37.4; O2SAT 92–98; BMI 34.4
[2019-11-19] MEDS: D5-NS 0.45% + KCL 20 mEq 20 MEQ/1,000 ML BAG 100 MEQ IV ×3 (01:33→22:28)
[2019-11-19] MEDS: pantoprazole 40 mg SDV IVP ×2 (02:54→15:45)
[2019-11-19] MEDS: heparin 5,000 unit/mL INJ 1 mL 5000 UNIT SUBCUT ×2 (02:54→15:45)
[2019-11-19] MEDS: piperacillin-tazobactam 3.375 GM in sodium chloride 0.9% (plus) 50 ML IV ×3 (03:20→18:19)
[2019-11-19 03:34] LABS: Basophils % 0.7 %; Eosinophils % 0.4 %; Hematocrit 37.7 % (37.0-47.0); Lymphocytes # 0.7 10^3/uL (0.8-4.8); Lymphocytes % 26.9 %; Mean Corpuscular HGB Conc 31.8 g/dL (30.0-36.0); Mean Corpuscular Hemoglobin 30.5 pg (28.0-34.0); Mean Corpuscular Volume 95.7 fL (81-99); Mean Platelet Volume 10.7 fL (7.4-10.4); Monocytes # 0.3 10^3/uL (0.2-0.9); Monocytes % 11.4 %; Neutrophils # 1.6 10^3/uL (1.8-7.7); Neutrophils % 60.2 %; Nucleated Red Blood Cells % 0 %; Platelet Count 125 10^3/cmm (130-400); Red Blood Count 3.94 10^6/uL (4.1-5.3); Red Cell Distribution Width 15.6 % (12.1-15.1); White Blood Count 2.7 10^3/uL (4.0-10.0)
[2019-11-19 03:54] LABS: Alanine Aminotransferase 40 U/L (0-33); Albumin Level 3.6 g/dL (3.5-5.2); Alkaline Phosphatase 60 IU/L (35-105); Anion Gap 15.7 (5-19); Aspartate Amino Transferase 35 U/L (0-32); Blood Urea Nitrogen 7 mg/dL (8-23); Calcium 8.5 mg/dL (8.5-10.5); Carbon Dioxide 21 mmol/L (22-29); Chloride 103 mmol/L (98-107); Globulin 2.9 g/dL (1.3-4.6); Glucose 130 mg/dL (65-115); Osmolality Calculated 280 mOsm/kg (285-295); Potassium 3.7 mmol/L (3.5-5.1); Sodium 136 mmol/L (136-145); Total Bilirubin 0.3 mg/dL (0.15-1.2); Total Protein 6.5 g/dL (6.6-8.7)
[2019-11-19 04:39] LABS: Slide Review Slide Review Perform
--- NOTE | 2019-11-19 07:17 | PM.PN ---
Subjective Subjective: Interval history: The patient's only complaint this morning is a right-sided headache (happens to her at home not infrequently). She continues to pass flatus, but not as much. She still denies any upper abdominal discomfort. Vitals/I&O/Wt Last Vital Signs Temp 99.3 F 11/19/19 04:00 Pulse 74 11/19/19 04:00 Resp 18 11/19/19 04:00 BP 141/72 11/19/19 04:00 Pulse Ox 97 11/19/19 04:00 11/18/19 11/19/19 11/19/19 22:59 06:59 14:59 Intake Total 50 2099 1000 / 2100 Balance 2099 1000 / 2100 Weight last 48 hrs Weight 220 lb Weight 220 lb Physical Exam Narrative: EXAM NARRATIVE: The upper abdomen is completely soft and nontender. She has very mild tenderness in the left lower quadrant still. Data : 11/19/19 02:50 11/19/19 02:50 Micro: Microbiology 11/18/19 10:56 Blood Culture - Preliminary Blood SPECIMEN COLLECTED 11/18/19 09:48 Blood Culture - Preliminary Blood SPECIMEN COLLECTED A&P Assessment and plan (1) Pneumoperitoneum: Continue present management. Since the patient's abdominal exam is not necessarily an obvious reflection of the imaging findings, I told her we may consider repeating the CAT scan as early as tomorrow morning. She is agreeable. She says she does not have much of an appetite and so the clear liquid diet is fine for now. Status: Acute Attestations Medical Necessity Statement*: See admitting service's notation. Coding Level of Care Code Acute Travel Counselor [employer] for Benjamín Montemayor Diagnoses Pneumoperitoneum K66.8
[2019-11-19] MEDS: morphine 4 mg/mL SDV 1 mL 2 MG IVP (08:42)
[2019-11-19] MEDS: ondansetron 2 mg/ML SDV 2 mL 4 MG IVP (08:42)
--- NOTE | 2019-11-19 12:57 | PM.PN ---
Subjective Subjective: Interval history: No acute events overnight. Patient passing flatus. Complaining of occasional headaches. She states she has these headaches at home as well. Denies of any nausea, aura, vomiting. Started on clear liquid diet earlier in the morning. Vitals/I&O/Wt Last Vital Signs Temp 98.2 F 11/19/19 07:42 Pulse 82 11/19/19 07:42 Resp 18 11/19/19 08:42 BP 120/74 11/19/19 07:42 Pulse Ox 93 11/19/19 07:42 11/18/19 11/19/19 11/19/19 22:59 06:59 14:59 Intake Total 50 / 1100 1000 / 2100 1000 / 1000 Balance 50 / 1100 1000 / 2100 1000 / 1000 Weight last 48 hrs Weight 99.79 kg Weight 99.79 kg Physical Exam Narrative: EXAM NARRATIVE: General: No acute distress, AO x3 HEENT: PERRLA, pupils bilaterally equal and reactive Chest: Normal vesicular breath sounds, no added sounds, equal good air entry bilaterally CVS: S1-S2 regular, no murmurs, no tachycardia, no gallops, no rubs Abdomen: Bowel sounds sluggish, soft, tender generalized, no rebound, guarding present Neuro: No focal deficits, no facial deformity, AO x3, power 5/5 in all limbs Data : 11/19/19 02:50 11/19/19 02:50 Micro: Microbiology 11/18/19 16:11 MRSA Culture - Final Nose 11/18/19 10:56 Blood Culture - Preliminary Blood NEGATIVE TO DATE 11/18/19 09:48 Blood Culture - Preliminary Blood NEGATIVE TO DATE A&P Assessment and plan (1) Pneumoperitoneum: Status: Acute (2) Fever: Status: Acute Qualifiers: Fever type: unspecified Qualified Code(s): R50.9 - Fever, unspecified (3) Hypertension: Status: Acute (4) Depression: Status: Acute Additional A&P Information Pneumoperitoneum: Surgery has been consulted. Appreciate Dr. Eng's recommendations. For now the plan is to treat conservatively and if patient deteriorates then to go for surgical exploration. Started on clear liquid diet today. Diet advancement, anticoagulation as per surgery. Continue with renally dosed vancomycin and Zosyn. MRSA negative. Continue with fluid at 75 cc/h.. Hypertension: Blood pressure 140/90 mmHg. Takes losartan at home. Blood pressure stable off antihypertensives for now. Will continue monitoring. History of depression: As patient is tolerating clear liquid diet well we will start her on home dose of bupropion and citalopram. Full code. Clear liquid diet Heparin Attestations Medical Necessity Statement*: Pneumoperitoneum Time Spent in Patient Care: 16 - 35 minutes Coding Level of Care Code Acute Long Chain Beamer for g Fwd Diagnoses Pneumoperitoneum K66.8 Fever R50.9 Fever type: unspecified Hypertension I10 Depression F32.9
--- NOTE | 2019-11-19 13:01 | PC.CHAP ---
Pastoral Care Encounter/Spiritual Assessment Type of Contact [] Declined laborer vegetable farm visit [] Patient/Family/Request visit [] Outpatient visit [] Follow-up visit [] Physician referral [] Code/Alert [] Routine visit [] Staff referral [] Actively dying [X] Patient sleeping [] Family support [] [] Out of room [] Palliative care [] [] Receiving care in room [] Pre-surgical visit [] Trauma [] Long length of stay [] ICU visit [] Other: Relational/Emotional Strength [] Patient feels connected with others/family/visitors/staff [] Distress [] Loneliness/isolation [] Abandonment Spirituality of Patient [] Person of Yazmin [] Attends Lutheran of their Yazmin [] Believes in Prayer [] Reads Bible or Synagogue materials [] There are Spiritual issues to be addressed Compliance Clerk Interventions [] Prayer [] Active listening [] Non-anxious presence [] Spiritual/emotional support [] Crisis/trauma care [] Spiritual counseling [] Bereavement support [] Provided bereavement packet [] Provided Bible/devotional materials [] Provided toy/stuffed animal, coloring book to patient or family member [] Provided Communion [] Anointing/Refugio [] Salvation [] Completed spiritual assessment [] Other: Impact on Illness or Injury [] Angry [] Fearful [] Anxious [] Often cries [] Exhaustion [] Unable to work [] Unable to attend episcopal [] Unable to walk/stand [] Unable to read [] Unable to drive [] Unable to eat/drink [] Unable to sleep [] Unable to be with family [] Patient intubated [] Other: Summary FOLLOW UP NEXT SHIFT Time spent with patient
[2019-11-20] VITALS: BP 121/72; PULSE 76; RESP 18; TEMP 37.2; O2SAT 96
[2019-11-20] MEDS: pantoprazole 40 mg SDV IVP (02:25)
[2019-11-20 03:50] VITALS: BP 135/77; PULSE 74; RESP 18; TEMP 37.1; O2SAT 95
[2019-11-20] MEDS: piperacillin-tazobactam 3.375 GM in sodium chloride 0.9% (plus) 50 ML IV ×2 (04:01→11:10)
[2019-11-20] MEDS: heparin 5,000 unit/mL INJ 1 mL 5000 UNIT SUBCUT (04:01)
[2019-11-20] MEDS: buPROPion XL (24 HR) 150 mg Tablet PO (05:58)
[2019-11-20 07:19] VITALS: BP 151/89; PULSE 75; RESP 16; TEMP 36.7; O2SAT 95
[2019-11-20 07:52] LABS: Basophils % 1.2 %; Eosinophils % 0.6 %; Hematocrit 40.6 % (37.0-47.0); Hemoglobin 12.5 g/dL (11.5-15.3); Lymphocytes # 1.6 10^3/uL (0.8-4.8); Lymphocytes % 50.6 %; Mean Corpuscular HGB Conc 30.8 g/dL (30.0-36.0); Mean Corpuscular Hemoglobin 29.6 pg (28.0-34.0); Mean Platelet Volume 10.5 fL (7.4-10.4); Monocytes # 0.4 10^3/uL (0.2-0.9); Monocytes % 12.3 %; Neutrophils # 1.1 10^3/uL (1.8-7.7); Nucleated Red Blood Cells % 0 %; Platelet Count 133 10^3/cmm (130-400); Red Blood Count 4.23 10^6/uL (4.1-5.3); Red Cell Distribution Width 15.6 % (12.1-15.1); White Blood Count 3.2 10^3/uL (4.0-10.0)
--- NOTE | 2019-11-20 08:00 | CTR_ITS ---
PROCEDURE INFORMATION: Exam: CT Abdomen And Pelvis Without And With Contrast Exam date and time: 11/20/2019 7:22 AM Age: 74 years old Clinical indication: Other: Abdominal free air; Prior surgery; Surgery type: Appy, hernia; Additional info: Follow up pneumoperitoneum TECHNIQUE: Imaging protocol: Computed tomography of the abdomen and pelvis without and with intravenous contrast. Radiation optimization: All CT scans at this facility use at least one of these dose optimization techniques: automated exposure control; mA and/or kV adjustment per patient size (includes targeted exams where dose is matched to clinical indication); or iterative reconstruction. Contrast material: Omnipaque 300; Contrast volume: 95 ml; Contrast route: INTRAVENOUS (IV); COMPARISON: CT abdomen pelvis w con* [id number] 11/18/2019 10:05 AM RADIATION DOSE METRICS: Total DLP (mGy-cm): 2855.86 FINDINGS: Liver: Normal. No mass. Gallbladder and bile ducts: Numerous tiny dependent gallstones are noted posteriorly in the borderline distended gallbladder. The gallbladder transverse lumen measures 4.1 cm. No gallbladder wall thickening or pericholecystic fluid identified. Pancreas: Normal. No ductal dilation. Spleen: A small anterior inferior splenule is present. Adrenals: Normal. No mass. Kidneys and ureters: 7.4 mm right, 5.8 mm left renal cortical hypodensities. No specific followup required/recommended. Stomach and bowel: Right anterior subdiaphragmatic colonic interposition of the mobile cecum is present, a normal variant. Sigmoid and descending colonic diverticula are present without evidence of diverticulitis. 2.7 cm 3rd portion duodenal diverticulum. Appendix: Surgical eldon and/or clips are noted at the previous base of the appendix. The appendix is surgically absent. Intraperitoneal space: Unremarkable. No free air. No significant fluid collection. Vasculature: Moderate aortic atherosclerotic calcification without aneurysm. The iliac arteries show moderate bilateral atherosclerotic calcifications without evidence of aneurysm. Calcified phleboliths are present in the lower pelvis bilaterally. Atherosclerotic calcifications are present involving the RCA coronary artery. Lymph nodes: No enlarged lymph nodes. Bladder: Unremarkable as visualized. Reproductive: Unremarkable as visualized. Bones/joints: Moderate L2-L3, mild L3-L4, L4-L5 and L5-S1 spondylosis. Diffuse osteopenia. Bilateral lower lumbar facet primary osteoarthritis. There is degenerative disc disease at multiple lumbar spine disk levels. Soft tissues: Anterior right abdominal wall subcutaneous adipose emphysema consistent with prior injection. CT/CT abdomen pelvis wo/w [id number] IMPRESSION: 1. Cholelithiasis, borderline gallbladder luminal distension. 2. Diverticulosis. 3. Prior appendectomy. 4. Coronary atherosclerosis. Radiation Dose CTDIVOL = (mGy): DLP = 2855.86 (mGy-cm)
[2019-11-20] MEDS: D5-NS 0.45% + KCL 20 mEq 20 MEQ/1,000 ML BAG 100 MEQ IV (08:26)
[2019-11-20] MEDS: escitalopram 10 mg Tablet 20 MG PO (08:27)
[2019-11-20] MEDS: iohexol 300 mg/mL 100 mL Btl IV (09:15)
[2019-11-20] MEDS: iohexol 300 mg/mL 50 mL Btl PO (09:16)
--- NOTE | 2019-11-20 09:36 | PM.PN ---
Subjective Subjective: Interval history: The patient says she feels well. She continues to pass small amounts of stool. She denies any upper abdominal pain. She had another CAT scan this morning. Vitals/I&O/Wt Last Vital Signs Temp 98.0 F 11/20/19 07:19 Pulse 75 11/20/19 07:19 Resp 16 11/20/19 07:19 BP 151/89 11/20/19 07:19 Pulse Ox 95 11/20/19 07:19 11/19/19 11/20/19 11/20/19 22:59 06:59 14:59 Intake Total 1340 / 3920 250 / 3920 1480 / 1480 Balance 1340 / 3920 250 / 3920 1480 / 1480 Weight last 48 hrs Weight 225 lb 7 oz Weight 220 lb Physical Exam Narrative: EXAM NARRATIVE: The patient still has no upper abdominal tenderness on exam. Data : 11/20/19 07:25 11/19/19 02:50 Micro: Microbiology 11/18/19 16:11 MRSA Culture - Final Nose 11/18/19 10:56 Blood Culture - Preliminary Blood NEGATIVE TO DATE 11/18/19 09:48 Blood Culture - Preliminary Blood NEGATIVE TO DATE A&P Assessment and plan (1) Pneumoperitoneum: Official CAT scan reading is still pending, but to me, it appears as if the pocket of air in the right upper quadrant anterior to the liver has changed somewhat in configuration, but does not appear to be any smaller. In addition, it clearly appears as if the patient has some contrast pooling in the pocket of air. I told the patient that my best guess is that she has a controlled perforation, perhaps from a ruptured diverticulum. She remains surprisingly asymptomatic. It appears that this would be easily accessible with a percutaneous drain, which certainly could be considered. We do not have a radiologist in the house that would be able to do that today, however. I will discuss the issue with them tomorrow. Status: Acute Attestations Medical Necessity Statement*: See admitting service's notation. Coding Level of Care Code Acute Furnace Utility Operator for Benjamín Montemayor Diagnoses Pneumoperitoneum K66.8
--- NOTE | 2019-11-20 10:35 | P.PN_ITS ---
Subjective Subjective: Interval history: Patient seems well. Denies of any nausea, vomiting. Denies of abdominal pain at present. Has been on morphine as needed for pain. Cough, palpitation, swelling in legs, headache, chest pain. Vitals/I&O/Wt Last Vital Signs Temp 98.0 F 11/20/19 07:19 Pulse 75 11/20/19 07:19 Resp 16 11/20/19 07:19 BP 151/89 11/20/19 07:19 Pulse Ox 95 11/20/19 07:19 11/19/19 11/20/19 11/20/19 22:59 06:59 14:59 Intake Total 1340 / 3670 250 / 3920 1480 / 1480 Balance 1340 / 3670 250 / 3920 1480 / 1480 Weight last 48 hrs Weight 102.257 kg Weight 99.79 kg Physical Exam Narrative: EXAM NARRATIVE: General: No acute distress, AO x3 HEENT: PERRLA, pupils bilaterally equal and reactive Chest: Normal vesicular breath sounds, no added sounds, equal good air entry bilaterally CVS: S1-S2 regular, no murmurs, no tachycardia, no gallops, no rubs Abdomen: Bowel sounds sluggish, soft, tender generalized, no rebound, guarding present Neuro: No focal deficits, no facial deformity, AO x3, power 5/5 in all limbs Data : 11/20/19 07:25 11/19/19 02:50 Micro: Microbiology 11/18/19 16:11 MRSA Culture - Final Nose 11/18/19 10:56 Blood Culture - Preliminary Blood NEGATIVE TO DATE 11/18/19 09:48 Blood Culture - Preliminary Blood NEGATIVE TO DATE A&P Assessment and plan (1) Perforated abdominal viscus: Status: Acute (2) Pneumoperitoneum: Status: Acute (3) Fever: Status: Acute Qualifiers: Fever type: unspecified Qualified Code(s): R50.9 - Fever, unspecified (4) Hypertension: Status: Acute (5) Depression: Status: Acute Additional A&P Information Pneumoperitoneum: Surgery has been consulted. Appreciate Dr. Eng's recommendations. Repeat CT scan today morning as per interpretation seems like stable pneumoperitoneum with some contrast pooling which is consistent with most likely perforated contained viscus. As per Dr. Eng patient would most likely benefit from percutaneous drain. Unfortunately radiologist is not available over the weekend. As patient has remained stable plan to discuss with radiologist tomorrow regarding the same. Continue with current antibiotics, clear liquid diet. Fluid D5 NS at 50 cc/h Hypertension: Blood pressure 140/90 mmHg. Takes losartan at home. Blood pressure stable off antihypertensives for now. Will continue monitoring. If required continue her amlodipine History of depression: As patient is tolerating clear liquid diet well we will start her on home dose of bupropion and citalopram. Full code. Clear liquid diet Heparin Attestations Medical Necessity Statement*: Contained perforation of viscus, pneumoperitoneum Time Spent in Patient Care: Greater than 35 minutes (>than 50% of time spent in counselling and/or direct pt care on unit) . Coding Level of Care Code Acute Photo Mask Cleaner for Benjamín Montemayor Diagnoses Perforated abdominal viscus R19.8 Pneumoperitoneum K66.8 Fever R50.9 Fever type: unspecified Hypertension I10 Depression F32.9
[2019-11-20 11:08] VITALS: BP 122/78; PULSE 72; RESP 18; TEMP 37; O2SAT 96
--- NOTE | 2019-11-20 13:40 | PM.DCS ---
Discharge Providers Date of Admission: 11/18/19 12:06 Date of Discharge: November 20, 2019 Attending Provider at Admission: Daniel Collins MD Attending Provider at Discharge: Daniel Collins MD Consults: Surgery: Dr. Eng Primary Care Provider: Joe Witt MD Diagnoses at Discharge Discharge Diagnosis (1) Perforated abdominal viscus: Status: Acute (2) Pneumoperitoneum: Status: Acute (3) Fever: Status: Acute Qualifiers: Fever type: unspecified Qualified Code(s): R50.9 - Fever, unspecified (4) Hypertension: Status: Acute (5) Depression: Status: Acute Reason for Visit Reason for Visit: poss uti/called back Hospital Course Discharge Summary: Chaparrita Godinez is a 74 year old female who presented to the emergency department last night for a 2-day history of some left lower quadrant abdominal discomfort along with urinary frequency and urgency. She said the pain in the left lower quadrant would also bother her back on that side at times. She was having some fevers and chills as well as some sweats. She has a history of recurrent urinary tract infections. She had been having new urinary frequency and urgency, but the abdominal discomfort along with urinary symptoms in the past is not typical. She had been running fevers up to 102 degrees. She was sent home on antibiotics with the presumptive diagnosis of a urinary tract infection, although her urinalysis last night (or today) did not look very suggestive of a bad infection. There was also apparently some concern on a plain film that the patient may have a small area of free air in the right upper quadrant under the diaphragm. A subsequent CAT scan was deemed to be negative for free air. Upon further evaluation by another radiologist this morning, it was thought that the CAT scan did, in fact, suggest free air; the patient was called back to the emergency room. A follow-up CAT scan revealed the same findings and the radiologist today thought the amount of air was slightly larger. The patient says that her abdominal pain is actually better today. She has not had any changes in her bowel habits and says her bowel movements have been normal. She denies hematochezia. Her appetite has not been very good over the past couple of days but she denies any upper abdominal pain. She has no known history of peptic ulcer disease or diverticulitis. She rarely takes NSAIDs, although she does have ibuprofen listed on her medication list (she says she rarely takes it). She had a colonoscopy around 2009 which did not show any problems according to her. She has no family history of colon neoplasia. Surgery was consulted. Patient was admitted to the floor for further monitoring and treatment. As patient was hemodynamically stable and comfortable plan was to treat her conservatively and broad-spectrum antibiotics. She did well during hospitalization and was eventually started on clear liquid diets. Repeat CT scan was done on November 19 and the radiologist who reviewed the CAT scan today feels that the changes we are seeing are secondary to a variant of a cecal bascule as opposed to her actually having free air. Case was discussed with Dr. Eng. Due to lack of inflammation, elevated white blood count, presence of contrast which was felt to be intraluminal it was felt it was safe to discharge patient home. All the results were discussed with the patient and she agreed. Patient was advanced to regular diet which she tolerated well. Once patient has tolerated the oral diet she was discharged in hemodynamically stable condition. During hospitalization patient's blood pressure remained stable and she did not require antihypertensives. This was discussed with the patient. She was advised to maintain a blood pressure diary for next 7 to 10 days with checking blood pressure 2-3 times a day and to take losartan if her blood pressures go more than 140/90 mmHg. She was advised to take the blood pressure diary when she follows up with Dr. Witt and Delbert in 10 days for further adjustment of antihypertensives. Physical Exam Narrative: EXAM NARRATIVE: General: No acute distress, AO x3 HEENT: PERRLA, pupils bilaterally equal and reactive Chest: Normal vesicular breath sounds, no added sounds, equal good air entry bilaterally CVS: S1-S2 regular, no murmurs, no tachycardia, no gallops, no rubs Abdomen: Bowel sounds sluggish, soft, tender generalized, no rebound, guarding present Neuro: No focal deficits, no facial deformity, AO x3, power 5/5 in all limbs Discharge Data Data Completed and Pending: Completed Studies During Hospitalization Category Date Time Status CT abdomen pelvis w con* [id number] Stat Cat Scan 11/18/19 09:[address] abdomen pelvis wo/w [id number] Routin e Cat Scan 11/20/19 08:00 [place] [id number] Urgent Ultrasound 11/18/19 14:35 Completed Pending at discharge Category Date Time Status Blood Culture Sta t Lab 11/18/19 10:56 Results Complete Blood Co unt w/Auto AM LABS Lab 11/21/19 04:00 Ordered Comprehensive Met abolic Panel AM LA BS Lab 11/21/19 04:00 Ordered Labs from last 24 hours 11/20/19 07:25 WBC 3.2 L RBC 4.23 Hgb 12.5 Hct 40.6 MCV 96.0 MCH 29.6 MCHC 30.8 RDW 15.6 H Plt Count 133 MPV 10.5 H Neut % (Auto) 35.0 Lymph % (Auto) 50.6 [place] % (Auto) 12.3 Eos % (Auto) 0.6 Baso % (Auto) 1.2 Neut # (Auto) 1.1 L Lymph # (Auto) 1.6 [place] # (Auto) 0.4 Eos # (Auto) 0.0 Baso # (Auto) 0.0 Nucleated RBC % (a uto) 0 Nucleated RBCs # 0.0 Imaging^: CT Abd/Pel: Radiologist's impression: CT scan done on November 20, 2019 FINDINGS: Liver: Normal. No mass. Gallbladder and bile ducts: Numerous tiny dependent gallstones are noted posteriorly in the borderline distended gallbladder. The gallbladder transverse lumen measures 4.1 cm. No gallbladder wall thickening or pericholecystic fluid identified. Pancreas: Normal. No ductal dilation. Spleen: A small anterior inferior splenule is present. Adrenals: Normal. No mass. Kidneys and ureters: 7.4 mm right, 5.8 mm left renal cortical hypodensities. No specific followup required/recommended. Stomach and bowel: Right anterior subdiaphragmatic colonic interposition of the mobile cecum is present, a normal variant. Sigmoid and descending colonic diverticula are present without evidence of diverticulitis. 2.7 cm 3rd portion duodenal diverticulum. Appendix: Surgical eldon and/or clips are noted at the previous base of the appendix. The appendix is surgically absent. Intraperitoneal space: Unremarkable. No free air. No significant fluid collection. Vasculature: Moderate aortic atherosclerotic calcification without aneurysm. The iliac arteries show moderate bilateral atherosclerotic calcifications without evidence of aneurysm. Calcified phleboliths are present in the lower pelvis bilaterally. Atherosclerotic calcifications are present involving the RCA coronary artery. Lymph nodes: No enlarged lymph nodes. Bladder: Unremarkable as visualized. Reproductive: Unremarkable as visualized. Bones/joints: Moderate L2-L3, mild L3-L4, L4-L5 and L5-S1 spondylosis. Diffuse osteopenia. Bilateral lower lumbar facet primary osteoarthritis. There is degenerative disc disease at multiple lumbar spine disk levels. Soft tissues: Anterior right abdominal wall subcutaneous adipose emphysema consistent with prior injection. CT/CT abdomen pelvis wo/w [id number] IMPRESSION: 1. Cholelithiasis, borderline gallbladder luminal distension. 2. Diverticulosis. 3. Prior appendectomy. 4. Coronary atherosclerosis. CT ABDOMEN AND PELVIS WITH CONTRAST on November 18, 2019 HISTORY: abd pain, possible free air. TECHNIQUE: Imaging performed of the abdomen and pelvis with IV contrast. Single phase imaging of the abdomen. Coronal and sagittal reformats are submitted. All CT scans at [facility] use at least one of these dose optimization techniques: automated exposure control; mA and/or kV adjustment per patient size (includes targeted exams where dose is matched to clinical indication); or iterative reconstruction. IV CONTRAST: Visipaque 320; 95 mL IV. Oral contrast: No DLP: 1335.58 mGy.cm COMPARISON: Earlier the same day. Lower thorax: Lung bases are clear. Heart is normal size. Small hiatal hernia. There is an air pocket just beneath the RIGHT diaphragm anteriorly. Curvilinear air extends across the superior aspect of the diaphragm. This connects to a large air pocket in the RIGHT abdomen contiguous with the hepatic flexure. There is a neck measuring 1.2 cm connecting this larger pocket to the subdiaphragmatic air. The amount of air over the diaphragm has increased. Liver, spleen, gallbladder, pancreas and adrenal glands and kidneys are unchanged. Cortical hypodensities are too small to characterize. Mild atherosclerosis aorta. There is no abscess. No ascites. Sigmoid diverticulosis without diverticulitis. Bones: Thoracolumbar scoliosis with advanced degenerative changes. Notified Vern Cantor DO at 11/18/2019 10:[address]/CT abdomen pelvis w con* [id number] IMPRESSION: 1. Enlarging pocket of air beneath the RIGHT hemidiaphragm with connection to the hepatic flexure. Free air versus new enlarging diverticulum. No GI tract obstruction. Favor this is probably a contained rupture with increasing distention. 2. No ascites. Vitals: Last Vital Signs Temp 98.6 F 11/20/19 11:08 Pulse 72 11/20/19 11:08 Resp 18 11/20/19 11:08 BP 122/78 11/20/19 11:08 Pulse Ox 96 11/20/19 11:08 Discharge Plan Discharge Patient Disposition: Home, Self-Care Condition: Stable Prescriptions: New levofloxacin 750 mg tablet 750 mg PO DAILY 5 Days RF: 0 Continued escitalopram oxalate 20 mg tablet 20 mg PO DAILY RF: 0 lovastatin 10 mg tablet 10 mg PO DAILY RF: 0 bupropion HCl 150 mg tablet extended release 24 hr 150 mg PO QAM RF: 0 losartan 50 mg tablet 50 mg PO DAILY RF: 0 aspirin 81 mg tablet,delayed release (DR/EC) 81 mg PO DAILY RF: 0 Complete Multivitamin Tablet 1 tab PO DAILY RF: 0 ibuprofen 800 mg tablet 800 mg PO Q8H PRN (Reason: Pain) RF: 0 tramadol 50 mg tablet 50 mg PO TID PRN (Reason: Pain) RF: 0 cephalexin [Keflex] 500 mg capsule 500 mg PO Q6H 7 Days Qty: 28 RF: 0 oxycodone-acetaminophen 5-325 mg tablet 1 tab PO Q4H PRN (Reason: Pain) RF: 0 Probiotic 1 cap PO DAILY RF: 0 Discontinued amoxicillin 500 mg capsule See Rx Instructions .ROUTE .COMPLEX RF: 0 Discharge Orders: Discharge Order (Routine); Ordered 11/20/19 Ordered By: Daniel Collins Referrals: Joe Witt MD [Primary Care Provider] - 7-10 days (Please call Dr. Witt's office at [phone] for a hospital follow up in 7-10 days. ) Discharge Diet: Cardiac Discharge Activity: Resume usual activity Patient Instructions: Levofloxacin (By mouth), Hypertension, Depression (DC) Activity Restrictions/Additional Instructions: Maintain BP dialry and follow up with Dr. Witt in 7-10 days. As discussed take losartan once a day if BP more than 140/90 mmhg Discharge Date/Time: 11/20/19 14:47 Discharge Attestations Time Spent in Discharge Care*: greater than 30 min Specific Discharge Activities: Specific discharge activities: educating patient, discussing with pcp/other providers, discussing with medical case worker/social workers/dc planners, documenting/other paperwork and evaluating patient/reviewing data Status at Discharge: Cognitive status at discharge: cognitively intact, Behavioral status at discharge: cooperative, Functional status at discharge: independent ambulation Overall status at discharge: patient is back to baseline Quality Metrics Clinical Quality Measures During this hospital stay, did patient experience: None Coding Level of Care Code Acute Girl Friday for Chg Fwd Diagnoses Perforated abdominal viscus R19.8 Pneumoperitoneum K66.8 Fever R50.9 Fever type: unspecified Hypertension I10 Depression F32.9
[2019-11-20 14:45] VITALS: BP 122/78; PULSE 72; RESP 18; TEMP 37; O2SAT 96
== END 2019-11-20 14:47 | disposition home or self-care (01) | DRG 394 ==
LOC: ER 09:29 → MEDSURG 13:01
PROVIDERS: Admitting Provider Student in an Organized Health Care Education/Training Program; Emergency Provider Family Medicine; PCP Family Medicine; Visit Provider Student in an Organized Health Care Education/Training Program
DX: K66.8 Other specified disorders of peritoneum (principal); N39.0 Urinary tract infection, site not specified; I10 Essential (primary) hypertension; F32.9 Major depressive disorder, single episode, unspecified; M48.02 Spinal stenosis, cervical region; Z86.711 Personal history of pulmonary embolism; Z87.891 Personal history of nicotine dependence
CPT/HCPCS: 12345; 36415; 74177; 74178; 80053; 81001; 81003; 83605; 83690; 84443; 85025; 85730; 87040; 87641; 93971; 94664; 96372; 96375; 99283; C9113; J1170; J1644; J2270; J2405; J2543; J3370; J7030; J7050; Q9967

== ENCOUNTER → 2019-12-14 10:29 | Outpatient (BNVA) | payer BC, SELFPAY | PROVIDERS: PCP Family Medicine; Visit Provider Orthopaedic Surgery | DX: Z96.651 Presence of right artificial knee joint (principal) | CPT/HCPCS: 73560; 73565 ==

== ENCOUNTER 2020-01-05 06:06 | Day surgery (SDC) | payer BC, SELFPAY ==
[2020-01-02 12:56] VITALS: BMI 34.4
[2020-01-05 06:18] VITALS: BP 167/103; PULSE 74; RESP 18; TEMP 36; O2SAT 98
[2020-01-05] MEDS: sodium chloride 0.9% 1,000 ML 30 ML IV (06:40)
--- NOTE | 2020-01-05 06:47 | ANES.PREANE2 ---
Pre-Anesthetic Assessment Pre-Anesthetic Assessment: Height/Weight: Height 1.7 m Weight 99.79 kg Temp Pulse Resp BP Pulse Ox 96.8 F L 74 18 167/103 98 01/05/20 06:18 01/05/20 06:18 01/05/20 06:18 01/05/20 06:18 01/05/20 06:18 Proposed Procedure: Operation Date: 01/05/20 07:00 Proposed Procedures p Colonoscopy(Not Applicable) - Vipin Eng MD Was Beta Saskia taken within 24 hours: N/A Last intake: Intake Last Liquid Date 01/04/20 Last Liquid Time 21:00 Last Solid Date 01/03/20 Last Solid Time 18:00 Social: Social History: No alcohol and No tobacco Exam: Pre-Anes Outpt Exam: alert, oriented x 3, clear to auscultation bilaterally and regular rate & rhythm Airway: Submandibular: WNL Cervical ROM: WNL MP: 2 Dentition: Full History/ROS: No significant history except as noted and No significant complaints Pulmonary: Pulmonary: None reported CV/HEM: CV/HEM: CAD and HTN : : None reported Hepatic: Hepatic: None reported GI: GI: None reported Metabolic: Metabolic: None reported Musc/skel: Musc/skel: OA/DJD Neuropsych: Neuropsych: None reported Anesthetic Plan: ASA status: 2 Anesthesia: Anesthesia Evaluation and MAC Risk of > 500 ml blood loss (7ml/kg in children): No PFSH Anesthesia PFSH: Medical History Cervical stenosis of spine Heart disease Hypertension Pulmonary embolism Surgical History History of appendectomy History of cataract surgery History of left inguinal hernia repair History of lumbar laminectomy History of tonsillectomy S/P total knee replacement Right total knee arthroplasty, DOS: 05-04-[address] Olmedo. Social History Smoking and tobacco status: former smoker Alcohol intake: never Data Anesthesia Cardiac Studies: No Data to Display
--- NOTE | 2020-01-05 06:48 | W.PM.OPSUD ---
Surgery/Procedure H&P Update DATE OF PROCEDURE: January 05, 2020 DATE H&P PERFORMED: 12/19/19 H&P UPDATE INFORMATION: No changes to prior documentation PLANNED PROCEDURE: Operation Date: 01/05/20 07:00 Proposed Procedures p Colonoscopy(Not Applicable) - Vipin Eng MD
[2020-01-05 07:14] VITALS: BP 105/74; PULSE 76; RESP 16; TEMP 36.1; O2SAT 97
[2020-01-05 07:24] VITALS: BP 131/79; PULSE 67; RESP 18; O2SAT 100
== END 2020-01-05 07:33 | disposition home or self-care (01) ==
PROVIDERS: PCP Family Medicine; Visit Provider Surgery
PROC: 0DJD8ZZ Inspection of Lower Intestinal Tract, Via Natural or Artificial Opening Endoscopic (ICD-10-PCS; CPT 45378; principal; 2020-01-05 07:00)
DX: Z12.11 Encounter for screening for malignant neoplasm of colon (principal); K57.30 Diverticulosis of large intestine without perforation or abscess without bleeding; K64.8 Other hemorrhoids; I25.10 Atherosclerotic heart disease of native coronary artery without angina pectoris; I10 Essential (primary) hypertension; M19.90 Unspecified osteoarthritis, unspecified site; Z87.891 Personal history of nicotine dependence; Z96.651 Presence of right artificial knee joint; Z86.711 Personal history of pulmonary embolism; Z79.82 Long term (current) use of aspirin; Z79.899 Other long term (current) drug therapy
CPT/HCPCS: 12345; 45378; J7030